=== PATIENT | female | born 1940 | race Caucasian/White ===

== ENCOUNTER 2024-07-23 22:07 | Emergency (ER) | payer OTHER ==
[2024-07-23 22:17] VITALS: RESP 18; BMI 23.0
[2024-07-23] MEDS ORDERED: ACETAMINOPHEN 325 MG TABLET (FP) ONE (23:35)
[2024-07-23] MEDS: ACETAMINOPHEN 500 MG TABLET (FP) PO ONE (23:42)
[2024-07-23 23:58] LABS: EPI CELLS 1 /uL (0-25.1); HYALINE CASTS 0 /uL (0-3.1); PH,URINE 7.5 (5.0-8.0); URINE APPEARANCE CLEAR; URINE BACTERIA 7 /uL (0-1359); URINE BILIRUBIN NEGATIVE (NEGATIVE); URINE COLOR YELLOW; URINE GLUCOSE (UA) NEGATIVE (NEGATIVE); URINE KETONE NEGATIVE (NEGATIVE); URINE LEUK ESTERASE TRACE (NEGATIVE); URINE NITRITE NEGATIVE (NEGATIVE); URINE PROTEIN NEGATIVE (NEGATIVE); URINE RBC 13 /uL (0-23.9); URINE UROBILINOGEN 0.2 mg/dL (0.2-1.0); URINE WBC 8 /uL (0-25.8)
[2024-07-24 01:25] VITALS: BP 145/78; PULSE 80; TEMP 98.1
== END 2024-07-24 01:25 | disposition home or self-care (01) ==
LOC: JER 22:07
DX: R51.9 Headache, unspecified (principal)
CPT/HCPCS: 70450-TC; 81003; 87086; 99284-25